=== PATIENT | female | born 1960 | race Caucasian/White ===

== ENCOUNTER → 2017-11-19 | Outpatient (CLI) | payer OTHER ==
[~2017-11-19] MED LIST: ASPIRIN EC81 M1 PO; CARDIZEM CD120 MG PO; LAMICTAL100 MG PO
== END ==
LOC: M.RAD 11:03
DX: Z12.31 Encounter for screening mammogram for malignant neoplasm of breast (principal)

== ENCOUNTER 2018-02-03 13:19 | Emergency (ER) | payer OTHER ==
[~2018-02-03] VITALS: Ht 157.5 cm; Wt 72.6 kg
[~2018-02-03 13:19] MED LIST changes: -CARDIZEM CD120 MG PO; -LAMICTAL100 MG PO
[2018-02-03] MEDS ORDERED: LAMICTAL100 MG PO (13:28)
[2018-02-03] MEDS ORDERED: CARDIZEM CD120 MG PO (13:28)
[2018-02-03 14:10] LABS: ABSOLUTE BASOPHILS 0.1 thou/uL (0.0-0.2); ABSOLUTE LYMPHOCYTES 2.5 thou/uL (0.8-5.3); ABSOLUTE MONOCYTES 0.4 thou/uL (0.0-1.2); ABSOLUTE NEUTROPHILS 4.9 thou/uL (1.6-8.1); EOSINOPHILS 0.3 %; HEMATOCRIT 40.4 % (37.0-47.0); HEMOGLOBIN 13.8 gm/dL (12.0-15.0); LYMPHOCYTES 31.8 %; MCH 30.4 pg (26.0-34.0); MCHC 34.1 g/dL (28.0-37.0); MPV 8.8 fl. (7.2-11.1); NUCLEATED RBCS 0 /100WBC; PLATELET COUNT* 253 thou/uL (150-400); POLYS 61.9 %; RBC 4.54 mil/uL (4.20-5.00); WBC 7.9 thou/uL (4.0-11.0)
[2018-02-03 14:19] LABS: ANION GAP 8 mmol/L (7-16); BUN 15 mg/dL (7-18); CALCIUM 9.2 mg/dL (8.5-10.1); CHLORIDE 107 mmol/L (98-107); CO2 28 mmol/L (21-32); CREATININE 0.9 mg/dL (0.6-1.3); GLUCOSE 110 mg/dL (70-99); POTASSIUM 3.8 mmol/L (3.5-5.1); SODIUM 143 mmol/L (136-145)
[2018-02-03 14:34] LABS: ALBUMIN 3.7 g/dL (3.4-5.0); ALKALINE PHOSPHATASE 69 U/L (46-116); LIPASE 238 U/L (73-393); MAGNESIUM 2.2 mg/dL (1.8-2.4); NT-PRO BRAIN NAT PEPTIDE 135 pg/mL (<300); SGOT 20 U/L (15-37); SGPT 31 U/L (30-65); TOTAL BILIRUBIN 0.2 mg/dL (<0.1-1.0); TOTAL PROTEIN 7.3 g/dL (6.4-8.2); TROPONIN-I LEVEL <0.06 ng/mL (<0.06)
[2018-02-03 14:38] VITALS: BP 150/71
--- NOTE | 2018-02-03 16:15 | EKG ---
[place] [address] ELECTROCARDIOGRAM REPORT Name: DIONE GARCÍA [facility] [id number] Admission: 02/03/18 Attend Phys: Discharge: 02/03/18 Date of : 56 Report #: [id number] THIS REPORT FOR: //name// [facility] ED Test Date: 2018-02-03 Test Time: 13:26:54 Pat Name: DIONE GARCÍA Department: Room: Gender: F Inventory Control Planner: OTTO : 1960 Requested By: Ayan Lai Order Number: [id number] MD: Nitish Little Measurements Intervals [place] Rate: 62 P: 67 TN: 148 QRS: 61 QRSD: 104 T: 24 QT: 448 QTc: 455 Interpretive Statements Sinus rhythm nonspecific st changes No previous ECG available for comparison Electronically Signed On 02-03-2018 16:15:19 CDT by Nitish Little [email or web address] <ELECTRONICALLY SIGNED> By: Nitish Little MD, [facility] 02/03/18 1615 1326 1326 Nitish Little MD, FACC /EPI
== END 2018-02-03 14:52 | disposition home or self-care (01) ==
LOC: M.ERS 13:19
PROVIDERS: Emergency Medicine Emergency Medical Services
DX: R00.2 Palpitations (principal)